=== PATIENT | male | born 1980 | race Caucasian/White ===

== ENCOUNTER 2021-09-12 05:47 | Day surgery (SDC) | payer OTHER ==
[~2021-09-12 05:47] MED LIST: Sodium Chloride 0.9% 10 ML Syringe FLUSH PRN
[2021-09-12] MEDS ORDERED: Midazolam 1 MG/ML 2 ML SDV IV ONE ×3 (05:48→07:04)
[2021-09-12] MEDS ORDERED: fentaNYL 100 MCG/2 ML SDV IV ONE ×3 (05:48→07:03)
[2021-09-12] MEDS ORDERED: Dextrose 5%-0.45% NaCl 1,000 ML IV SCH (06:00)
[2021-09-12] MEDS ORDERED: Midazolam 1 MG/ML 2 ML SDV ONE (06:01)
[2021-09-12] MEDS ORDERED: fentaNYL 100 MCG/2 ML SDV ONE (06:01)
[2021-09-12] MEDS ORDERED: Sodium Chloride 0.9% 10 ML Syringe FLUSH SCH (09:00)
== END 2021-09-12 09:03 | disposition home or self-care (01) ==
LOC: DL.ENDO 05:47
PROVIDERS: ATTEND Internal Medicine Gastroenterology
DX: K29.50 Unspecified chronic gastritis without bleeding (principal); D50.9 Iron deficiency anemia, unspecified; K31.89 Other diseases of stomach and duodenum; E66.09 Other obesity due to excess calories; Z86.16 Personal history of COVID-19; Z98.890 Other specified postprocedural states; Z01.812 Encounter for preprocedural laboratory examination; Z20.822 Contact with and (suspected) exposure to COVID-19; Z68.37 Body mass index [BMI] 37.0-37.9, adult
CPT/HCPCS: 87077; J2250; J3010; J7042; U0002

== ENCOUNTER 2021-09-17 06:21 | Day surgery (SDC) | payer OTHER ==
[~2021-09-17 06:21] MED LIST changes: +Dextrose 5%-0.45% NaCl 1,000 ML IV SCH; +Midazolam 1 MG/ML 2 ML SDV ONE; +Sodium Chloride 0.9% 10 ML Syringe FLUSH SCH; +fentaNYL 100 MCG/2 ML SDV ONE
[2021-09-17] MEDS ORDERED: fentaNYL 100 MCG/2 ML SDV IV ONE ×5 (06:22→07:52)
[2021-09-17] MEDS ORDERED: Midazolam 1 MG/ML 2 ML SDV IV ONE ×7 (06:22→07:47)
== END 2021-09-17 09:45 | disposition home or self-care (01) ==
LOC: DL.ENDO 06:21
PROVIDERS: ATTEND Internal Medicine Gastroenterology
DX: K57.30 Diverticulosis of large intestine without perforation or abscess without bleeding (principal); D50.9 Iron deficiency anemia, unspecified; K64.8 Other hemorrhoids; E66.09 Other obesity due to excess calories; Z86.16 Personal history of COVID-19; Z98.890 Other specified postprocedural states; Z68.37 Body mass index [BMI] 37.0-37.9, adult
CPT/HCPCS: J2250; J3010; J7042